=== PATIENT | male | born 1985 | race African-American/Black ===

== ENCOUNTER 2023-04-09 10:35 | Inpatient (IN) | payer MEDICAID, OTHER ==
[~2023-04-09] VITALS: Ht 170.2 cm; Wt 62.3 kg
[2023-04-09] MEDS ORDERED: SODIUM CHLORIDE 0.9% 1,000 ML IVB ONE (10:45)
[2023-04-09 11:01] LABS: Hematocrit 42.8 % (41.0-53.0); Hemoglobin 13.9 g/dL (13.5-17.5); Mean Corpuscular Hemoglobin 29.5 pg (28.0-32.0); Mean Corpuscular Hgb Conc. 32.4 g/dL (32.0-36.0); Mean Corpuscular Volume 91.1 fL (80.0-100.0); Red Cell Distribution Width 13.5 % (11.8-14.3); White Blood Cell 11.8 10^3/uL (4.4-10.8)
[2023-04-09 11:17] LABS: Albumin 3.8 g/dL (3.4-5.0); Anion Gap 10 (5-15); Blood Alcohol < 3.0 mg/dL (<10); Blood Urea Nitrogen 25 mg/dL (7-18); Calcium 8.1 mg/dL (8.5-10.1); Carbon Dioxide 27 mmol/L (21-32); Chloride 102 mmol/L (98-107); Glucose 217 mg/dL (74-106); Potassium 5.1 mmol/L (3.5-5.1); Sodium 139 mmol/L (136-145)
[2023-04-09 11:20] LABS: Alanine Aminotransferase 98 U/L (16-61); Alkaline Phosphatase 115 U/L (45-117); Aspartate Aminotransferase 159 U/L (15-37); BUN/Creatinine Ratio 9.1 (10.0-20.0); Bilirubin, Total 0.3 mg/dL (0.2-1.0); GFR African American 34 mL/min; GFR Non-African American 28 mL/min; Total Protein 6.6 g/dL (6.4-8.2)
[2023-04-09 11:23] LABS: Salicylate < 1.7 mg/dL (2.8-20.0)
[2023-04-09 11:51] LABS: Basophils % (manual) 0 (0.0-2.0); Blast Cells 0; Eosinophils % (manual) 0 (0-7); Metamyelocytes % 0; Myelocytes % 0; Promyelocytes % 0; Reactive Lymphocytes 0
[2023-04-09 11:55] LABS: INR 1.06 (0.9-1.15); Partial Thromboplastin Time 22.4 SEC (24.5-34.5); Prothrombin Time 11.1 sec (9.3-11.8)
[2023-04-09 12:56] LABS: Acetaminophen < 2.0 ug/mL (10-30)
[2023-04-09 12:58] VITALS: PULSE 100; O2SAT 96
[2023-04-09 13:11] LABS: Alcohol, Urine < 3.0 mg/dL (0-10); Amphetamine Screen, Urine POSITIVE (NEGATIVE); Barbiturate Scree,Urine NEGATIVE (NEGATIVE); Benzodiazephine Screen, Urine NEGATIVE (NEGATIVE); Cannabinoid Screen, Urine NEGATIVE (NEGATIVE); Cocaine Screen, Urine NEGATIVE (NEGATIVE)
[2023-04-09 13:12] LABS: Urine Bacteria FEW /hpf (None Seen); Urine Blood 2+ /uL (Negative); Urine Clarity Clear (Clear); Urine Color Yellow (Yellow); Urine Protein, UAD TRACE (Negative); Urine Specific Gravity 1.008 (1.001-1.035); Urine Sperm PRESENT /hpf (None Seen); Urine Urobilinogen Normal (Negative); Urine WBC 2 /hpf (0 - 3); Urine pH 6.5 (5.0-8.0)
[2023-04-09 13:19] LABS: Opiate Scree,Urine NEGATIVE (NEGATIVE); Phencyclidine Screen, Urine NEGATIVE (NEGATIVE)
[2023-04-09 15:21] LABS: Band Neutrophils % (manual) 1; Lymphocytes % (manual) 9 (10.0-50.0); Monocytes % (manual) 6 (0-12)
[2023-04-09 15:22] LABS: Platelet Estimate Adequate
[2023-04-09] MEDS ORDERED: SODIUM CHLORIDE 0.9% 1,000 ML IV ONE (16:45)
[2023-04-09] MEDS ORDERED: ONDANSETRON HCL 4 MG/2 ML VIAL IV PRN (17:30)
[2023-04-09] MEDS ORDERED: DOCUSATE SOD 100 MG CAP PO PRN (17:30)
[2023-04-09] MEDS ORDERED: NALOXONE HCL 1MG/ML 2ML SYRINGE IV PRN (17:30)
[2023-04-09] MEDS: InsuLIN REG 1unit/0.01ml Soln (100units/ml) SC SCH (18:00)
[2023-04-09 18:05] LABS: Base Excess -3.8 mmol/L (-2.0-2.0)
[2023-04-09 18:56] LABS: Creatinine, Urine 52 mg/dL (30.0-125.0); Sodium Urine 90 mmol/L (40-220)
[2023-04-09] MEDS: ACCU-CHEK COMFORT CURVE STRIP VI SCH (19:10)
[2023-04-09] MEDS: SODIUM CHLORIDE 0.9% 1,000 ML IV SCH (19:10)
[2023-04-09] MEDS: PANTOPRAZOLE 40 MG/10 ML VIAL INJ IV SCH (19:11)
[2023-04-09 19:30] VITALS: PULSE 108; RESP 20; O2SAT 93
[2023-04-10] MEDS: ACCU-CHEK COMFORT CURVE STRIP VI SCH ×5 (00:22→21:31)
[2023-04-10] MEDS: SODIUM CHLORIDE 0.9% 1,000 ML IV SCH ×2 (01:59→10:45)
[2023-04-10 05:06] LABS: Hematocrit 44.5 % (41.0-53.0); Hemoglobin 14.6 g/dL (13.5-17.5); Mean Corpuscular Hgb Conc. 32.9 g/dL (32.0-36.0); Mean Corpuscular Volume 91.3 fL (80.0-100.0); Red Blood Cells 4.87 10^6/uL (4.5-5.90); Red Cell Distribution Width 13.7 % (11.8-14.3); White Blood Cell 9.2 10^3/uL (4.4-10.8)
[2023-04-10 05:15] LABS: Basophils % (manual) 0 (0.0-2.0); Blast Cells 0; Eosinophils % (manual) 0 (0-7); Monocytes % (manual) 0 (0-12); Myelocytes % 0; Promyelocytes % 0; Reactive Lymphocytes 0
[2023-04-10] MEDS: InsuLIN REG 1unit/0.01ml Soln (100units/ml) SC SCH ×3 (06:00→13:54)
[2023-04-10 06:23] LABS: Band Neutrophils % (manual) 15; Lymphocytes % (manual) 7 (10.0-50.0); Metamyelocytes % 4
[2023-04-10 06:24] LABS: RBC Morphology Normal
[2023-04-10 06:25] LABS: Platelet Estimate Adequate
[2023-04-10] MEDS: ACETAMINOPHEN 325 MG TAB PO PRN (06:45)
[2023-04-10 06:54] LABS: BUN/Creatinine Ratio 12.6 (10.0-20.0); Bilirubin, Total 0.7 mg/dL (0.2-1.0); Calcium 7.4 mg/dL (8.5-10.1); Potassium 4.2 mmol/L (3.5-5.1)
[2023-04-10 06:55] LABS: Albumin 3.1 g/dL (3.4-5.0); Total Protein 6.2 g/dL (6.4-8.2)
[2023-04-10] MEDS ORDERED: SODIUM CHLORIDE 0.9% 1,000 ML IV ONE (08:30)
[2023-04-10 09:06] VITALS: PULSE 124; RESP 18; O2SAT 92
[2023-04-10] MEDS: PANTOPRAZOLE 40 MG/10 ML VIAL INJ IV SCH (10:45)
[2023-04-10] MEDS ORDERED: hydrALAZINE HCL 20 MG/ML VL IV PRN (13:45)
[2023-04-10] MEDS ORDERED: CARVEDILOL 12.5 MG TAB PO ONE (13:45)
[2023-04-10] MEDS ORDERED: HEPARIN SODIUM (PORCINE) 5000 UNITS/ML 1ML VIAL SC ONE (13:45)
[2023-04-10 14:55] LABS: Cholesterol 105 mg/dL (< 200)
[2023-04-10 14:59] LABS: HDL Cholesterol 70 mg/dL (40-59); LDL Cholesterol 29 mg/dL (< 100); Triglycerides 37 mg/dL (< 150)
[2023-04-10] MEDS: DEXTROSE (50%) 50ML SYRG IV PRN ×3 (16:50→21:32)
[2023-04-10 17:01] LABS: Base Excess -4.6 mmol/L (-2.0-2.0)
[2023-04-10] MEDS ORDERED: D5W/SOD CHL 0.45% 1,000 ML IV ONE (18:30)
[2023-04-10 19:31] LABS: Albumin 2.4 g/dL (3.4-5.0); Calcium 7.3 mg/dL (8.5-10.1)
[2023-04-10 19:34] LABS: BUN/Creatinine Ratio 14.5 (10.0-20.0); Bilirubin, Total 0.8 mg/dL (0.2-1.0); Total Protein 5.2 g/dL (6.4-8.2)
[2023-04-10 19:50] VITALS: PULSE 116; RESP 32; O2SAT 93
[2023-04-10] MEDS ORDERED: HEPARIN SODIUM (PORCINE) 5000 UNITS/ML 1ML VIAL SC SCH (22:00)
[2023-04-10] MEDS ORDERED: CARVEDILOL 12.5 MG TAB PO SCH (22:00)
[2023-04-10] MEDS ORDERED: DEXTROSE 10% 1,000 ML IV ONE (22:45)
[2023-04-11] MEDS: DEXTROSE (50%) 50ML SYRG IV PRN (00:27)
[2023-04-11] MEDS ORDERED: DEXTROSE 10% 1,000 ML IV ONE (01:00)
[2023-04-11] MEDS: ACCU-CHEK COMFORT CURVE STRIP VI SCH ×6 (02:01→22:54)
[2023-04-11 06:38] LABS: Hematocrit 40.9 % (41.0-53.0); Mean Corpuscular Hemoglobin 29.9 pg (28.0-32.0); Mean Corpuscular Hgb Conc. 34.2 g/dL (32.0-36.0); Mean Corpuscular Volume 87.4 fL (80.0-100.0); Red Blood Cells 4.68 10^6/uL (4.5-5.90); Red Cell Distribution Width 13.1 % (11.8-14.3); White Blood Cell 4.4 10^3/uL (4.4-10.8)
[2023-04-11 06:59] LABS: Albumin 2.2 g/dL (3.4-5.0); Calcium 7.4 mg/dL (8.5-10.1); Potassium 4.3 mmol/L (3.5-5.1)
[2023-04-11 07:04] LABS: BUN/Creatinine Ratio 17.7 (10.0-20.0); Bilirubin, Total 0.9 mg/dL (0.2-1.0); Magnesium 2.1 mg/dL (1.6-2.6); Total Protein 4.5 g/dL (6.4-8.2)
[2023-04-11 07:20] VITALS: PULSE 110; RESP 18; O2SAT 95
[2023-04-11 07:34] LABS: Blast Cells 0; Eosinophils % (manual) 0 (0-7); Metamyelocytes % 0; Myelocytes % 0; Promyelocytes % 0; Reactive Lymphocytes 0
[2023-04-11] MEDS: PANTOPRAZOLE 40 MG/10 ML VIAL INJ IV SCH (09:27)
[2023-04-11] MEDS: CARVEDILOL 12.5 MG TAB PO SCH ×2 (09:28→10:28)
[2023-04-11 09:40] LABS: Band Neutrophils % (manual) 16; Basophils % (manual) 1 (0.0-2.0); Lymphocytes % (manual) 8 (10.0-50.0); Monocytes % (manual) 7 (0-12)
[2023-04-11 09:41] LABS: Platelet Estimate Decreased; RBC Morphology Normal
[2023-04-11 09:54] LABS: Hepatitis B Surface Antibody Positive (Negative)
[2023-04-11 10:26] LABS: Hepatitis A Total Antibody Positive (Negative)
[2023-04-11 12:00] LABS: Hepatitis B Core Total AB Negative (Negative)
[2023-04-11 12:01] LABS: Hepatitis B Surface Antigen Negative (Negative)
[2023-04-11 12:02] LABS: Hepatitis C Antibody Negative (Negative)
[2023-04-11] MEDS ORDERED: FUROSEMIDE 40 MG/4 ML VIAL IV ONE (16:15)
[2023-04-11] MEDS ORDERED: FUROSEMIDE 40 MG/4 ML VIAL IV SCH (18:00)
[2023-04-11 20:00] VITALS: PULSE 115; RESP 14; O2SAT 95
[2023-04-11] MEDS: ACETAMINOPHEN 325 MG TAB PO PRN (23:07)
[2023-04-11 23:16] VITALS: BP 136/96; PULSE 103; PULSE 106; RESP 22; TEMP 98.4; O2SAT 96
[2023-04-12] VITALS (8 sets, daily range): BP systolic 100–151; BP diastolic 67–101; PULSE 97–111; RESP 18–21; TEMP 98.8–100.5; O2SAT 90–98
[2023-04-12] MEDS: ACCU-CHEK COMFORT CURVE STRIP VI SCH ×6 (02:29→21:08)
[2023-04-12] MEDS ORDERED: HYDROcodone-ACET 5/325MG TAB PO ONE (05:45)
[2023-04-12 07:09] LABS: Calcium 8.3 mg/dL (8.5-10.1); Potassium 3.8 mmol/L (3.5-5.1)
[2023-04-12 07:12] LABS: BUN/Creatinine Ratio 19.5 (10.0-20.0); Bilirubin, Total 1.2 mg/dL (0.2-1.0); Total Protein 5.8 g/dL (6.4-8.2)
[2023-04-12 08:06] LABS: Thyroid Peroxidase (TPO) Ab <9 IU/mL (0-34)
[2023-04-12] MEDS: PANTOPRAZOLE 40 MG/10 ML VIAL INJ IV SCH (09:44)
[2023-04-12] MEDS: CARVEDILOL 12.5 MG TAB PO SCH ×2 (09:45→21:23)
[2023-04-12] MEDS: ACETAMINOPHEN 325 MG TAB PO PRN ×2 (09:45→21:20)
[2023-04-12] MEDS ORDERED: FUROSEMIDE 40 MG/4 ML VIAL IV SCH (10:00)
[2023-04-12 19:05] LABS: Free T3 1.03 pg/mL (2.3-4.2); T3 Total 0.34 ng/mL (0.60-1.81)
[2023-04-13] VITALS (7 sets, daily range): BP systolic 100–116; BP diastolic 52–71; PULSE 95–109; RESP 19–30; TEMP 97.3–100.9; O2SAT 92–98
[2023-04-13] MEDS: ACCU-CHEK COMFORT CURVE STRIP VI SCH ×4 (00:58→14:00)
[2023-04-13 07:49] LABS: Albumin 1.8 g/dL (3.4-5.0); Calcium 8.4 mg/dL (8.5-10.1); Potassium 3.9 mmol/L (3.5-5.1)
[2023-04-13 08:01] LABS: BUN/Creatinine Ratio 23.8 (10.0-20.0); Bilirubin, Total 1.3 mg/dL (0.2-1.0); Total Protein 5.7 g/dL (6.4-8.2)
[2023-04-13] MEDS: PANTOPRAZOLE 40 MG/10 ML VIAL INJ IV SCH (09:46)
[2023-04-13] MEDS: CARVEDILOL 12.5 MG TAB PO SCH ×2 (09:47→22:13)
[2023-04-13] MEDS ORDERED: FUROSEMIDE 20 MG/2 ML VIAL IV SCH (10:00)
[2023-04-13] MEDS: ACETAMINOPHEN 325 MG TAB PO PRN ×2 (13:10→22:14)
[2023-04-13] MEDS ORDERED: cefTRIAXone 1GM/50ML D5W 50 ML IV ONE (15:30)
[2023-04-14] VITALS (8 sets, daily range): BP systolic 94–112; BP diastolic 53–69; PULSE 95–108; RESP 22–24; TEMP 99–100.2; O2SAT 93–95
[2023-04-14 06:35] LABS: Hematocrit 35.5 % (41.0-53.0); Hemoglobin 11.8 g/dL (13.5-17.5); Mean Corpuscular Hemoglobin 29.3 pg (28.0-32.0); Mean Corpuscular Hgb Conc. 33.4 g/dL (32.0-36.0); Mean Corpuscular Volume 87.9 fL (80.0-100.0); Red Blood Cells 4.03 10^6/uL (4.5-5.90); Red Cell Distribution Width 14.3 % (11.8-14.3); White Blood Cell 12.3 10^3/uL (4.4-10.8)
[2023-04-14 06:56] LABS: Potassium 3.6 mmol/L (3.5-5.1)
[2023-04-14 07:03] LABS: Basophils % (manual) 0 (0.0-2.0); Eosinophils % (manual) 0 (0-7); Metamyelocytes % 0; Myelocytes % 0
[2023-04-14 07:04] LABS: Blast Cells 0; Promyelocytes % 0; Reactive Lymphocytes 0
[2023-04-14 07:07] LABS: Albumin 1.7 g/dL (3.4-5.0); BUN/Creatinine Ratio 32.1 (10.0-20.0); Bilirubin, Total 1.1 mg/dL (0.2-1.0); Calcium 7.9 mg/dL (8.5-10.1); Total Protein 4.6 g/dL (6.4-8.2)
[2023-04-14] MEDS: cefTRIAXone 1GM/50ML D5W 50 ML IV SCH (08:28)
[2023-04-14] MEDS: CARVEDILOL 12.5 MG TAB PO SCH ×2 (09:24→22:59)
[2023-04-14] MEDS: PANTOPRAZOLE 40 MG/10 ML VIAL INJ IV SCH (09:25)
[2023-04-14 11:34] LABS: Free T4 (Free Thyroxine) 0.55 ng/dL (0.89-1.76); T3 Total 0.27 ng/mL (0.60-1.81)
[2023-04-14 12:20] LABS: Band Neutrophils % (manual) 16; Lymphocytes % (manual) 4 (10.0-50.0); Monocytes % (manual) 6 (0-12)
[2023-04-14 12:22] LABS: Platelet Estimate Decreased; Tear Drop Cells FEW
[2023-04-14 14:39] LABS: INR 1.03 (0.9-1.15); Partial Thromboplastin Time 43.5 SEC (24.5-34.5); Prothrombin Time 10.8 sec (9.3-11.8)
[2023-04-15] VITALS (8 sets, daily range): BP systolic 115–138; BP diastolic 72–87; PULSE 81–95; RESP 20–95; TEMP 98.2–99.8; O2SAT 92–97
[2023-04-15 06:50] LABS: Basophils # (auto) 0 10 ^3/uL (0-0.2); Basophils % (auto) 0.2 % (0.0-2.0); Eosinophils # (auto) 0 10 ^3/uL (0-0.8); Eosinophils % (auto) 0.1 % (0.0-7.0); Hematocrit 35.5 % (41.0-53.0); Lymphocytes # (auto) 0.5 10 ^3/uL (0.4-5.4); Lymphocytes % (auto) 3.6 % (10.0-50.0); Mean Corpuscular Hemoglobin 29.5 pg (28.0-32.0); Mean Corpuscular Volume 86.8 fL (80.0-100.0); Monocytes # (auto) 0.3 10 ^3/uL (0-1.3); Monocytes % (auto) 1.7 % (0.0-12.0); Neutrophils # (auto) 13.8 10 ^3/uL (1.6-8.6); Neutrophils % (auto) 94.4 % (37.0-80.0); Nucleated Red Blood Cells % 0.1 %; Red Blood Cells 4.09 10^6/uL (4.5-5.90); White Blood Cell 14.6 10^3/uL (4.4-10.8)
[2023-04-15 07:05] LABS: INR 0.99 (0.9-1.15); Partial Thromboplastin Time 39.6 SEC (24.5-34.5); Prothrombin Time 10.4 sec (9.3-11.8)
[2023-04-15 07:06] LABS: Albumin 1.5 g/dL (3.4-5.0); Calcium 8.4 mg/dL (8.5-10.1); Potassium 3.3 mmol/L (3.5-5.1)
[2023-04-15 07:11] LABS: BUN/Creatinine Ratio 42.3 (10.0-20.0); Bilirubin, Total 0.6 mg/dL (0.2-1.0); Total Protein 5.9 g/dL (6.4-8.2)
[2023-04-15] MEDS ORDERED: POTASSIUM CHL 20 Meq TABLET PO ONE (07:45)
[2023-04-15] MEDS: cefTRIAXone 1GM/50ML D5W 50 ML IV SCH (09:40)
[2023-04-15] MEDS: PANTOPRAZOLE 40 MG/10 ML VIAL INJ IV SCH (09:41)
[2023-04-15] MEDS: CARVEDILOL 12.5 MG TAB PO SCH ×2 (09:42→23:28)
[2023-04-15] MEDS: VALSARTAN 80 MG TAB PO SCH (09:45)
[2023-04-15 11:04] LABS: Urine Bacteria NONE SEEN /hpf (None Seen); Urine Blood TRACE /uL (Negative); Urine Clarity Clear (Clear); Urine Color Yellow (Yellow); Urine Protein, UAD 1+ (Negative); Urine Specific Gravity 1.018 (1.001-1.035); Urine WBC <1 /hpf (0 - 3); Urine pH 6.5 (5.0-8.0)
[2023-04-15 11:16] LABS: Alcohol, Urine < 3.0 mg/dL (0-10); Cannabinoid Screen, Urine NEGATIVE (NEGATIVE)
[2023-04-15 11:18] LABS: Amphetamine Screen, Urine NEGATIVE (NEGATIVE); Barbiturate Scree,Urine NEGATIVE (NEGATIVE); Benzodiazephine Screen, Urine NEGATIVE (NEGATIVE); Cocaine Screen, Urine NEGATIVE (NEGATIVE); Opiate Scree,Urine NEGATIVE (NEGATIVE); Phencyclidine Screen, Urine NEGATIVE (NEGATIVE)
[2023-04-15] MEDS: MAALOX PLUS or MAALOX 30 ML PO PRN (23:28)
[2023-04-16] VITALS (7 sets, daily range): BP systolic 122–144; BP diastolic 78–97; PULSE 87–101; RESP 16–23; TEMP 97.7–99.6; O2SAT 93–98
[2023-04-16 05:53] LABS: Hematocrit 34.6 % (41.0-53.0); Hemoglobin 11.6 g/dL (13.5-17.5); Mean Corpuscular Hemoglobin 29.2 pg (28.0-32.0); Mean Corpuscular Hgb Conc. 33.4 g/dL (32.0-36.0); Mean Corpuscular Volume 87.6 fL (80.0-100.0); Red Blood Cells 3.95 10^6/uL (4.5-5.90); Red Cell Distribution Width 14.1 % (11.8-14.3); White Blood Cell 13.3 10^3/uL (4.4-10.8)
[2023-04-16 06:01] LABS: Basophils % (manual) 0 (0.0-2.0); Blast Cells 0; Eosinophils % (manual) 0 (0-7); Metamyelocytes % 0; Myelocytes % 0; Promyelocytes % 0; Reactive Lymphocytes 0
[2023-04-16 06:12] LABS: Potassium 3.2 mmol/L (3.5-5.1)
[2023-04-16 06:18] LABS: Albumin 1.6 g/dL (3.4-5.0); BUN/Creatinine Ratio 29.6 (10.0-20.0); Bilirubin, Total 0.8 mg/dL (0.2-1.0); Calcium 7.9 mg/dL (8.5-10.1); Total Protein 5.5 g/dL (6.4-8.2)
[2023-04-16 07:58] LABS: Band Neutrophils % (manual) 4; Lymphocytes % (manual) 12 (10.0-50.0); Monocytes % (manual) 3 (0-12)
[2023-04-16 07:59] LABS: Platelet Estimate Adequate
[2023-04-16] MEDS ORDERED: POTASSIUM CHL 20 Meq TABLET PO ONE (08:45)
[2023-04-16] MEDS: cefTRIAXone 1GM/50ML D5W 50 ML IV SCH (08:47)
[2023-04-16] MEDS: PANTOPRAZOLE 40 MG/10 ML VIAL INJ IV SCH (09:16)
[2023-04-16] MEDS: CARVEDILOL 12.5 MG TAB PO SCH ×2 (09:18→22:26)
[2023-04-16] MEDS: VALSARTAN 80 MG TAB PO SCH (09:24)
[2023-04-16] MEDS: Pro-Stat SF 30ml Vanilla PO SCH (18:00)
[2023-04-16] MEDS: MAALOX PLUS or MAALOX 30 ML PO PRN (22:29)
[2023-04-17] VITALS (9 sets, daily range): BP systolic 134–147; BP diastolic 82–97; PULSE 85–103; RESP 18–23; TEMP 98.2–100.8; O2SAT 94–97
[2023-04-17 08:07] LABS: Potassium 4.5 mmol/L (3.5-5.1)
[2023-04-17 08:14] LABS: Albumin 1.7 g/dL (3.4-5.0); BUN/Creatinine Ratio 24.4 (10.0-20.0); Calcium 8.2 mg/dL (8.5-10.1); Total Protein 5.9 g/dL (6.4-8.2)
[2023-04-17] MEDS: Pro-Stat SF 30ml Vanilla PO SCH ×3 (08:28→18:18)
[2023-04-17] MEDS: cefTRIAXone 1GM/50ML D5W 50 ML IV SCH (08:53)
[2023-04-17 09:41] LABS: Hematocrit 37.3 % (41.0-53.0); Hemoglobin 12.4 g/dL (13.5-17.5); Mean Corpuscular Hemoglobin 29.3 pg (28.0-32.0); Mean Corpuscular Hgb Conc. 33.3 g/dL (32.0-36.0); Mean Corpuscular Volume 88.1 fL (80.0-100.0); Red Blood Cells 4.23 10^6/uL (4.5-5.90); Red Cell Distribution Width 13.8 % (11.8-14.3); White Blood Cell 17.5 10^3/uL (4.4-10.8)
[2023-04-17 09:55] LABS: Basophils % (manual) 0 (0.0-2.0); Blast Cells 0; Eosinophils % (manual) 0 (0-7); Metamyelocytes % 0; Myelocytes % 0; Promyelocytes % 0; Reactive Lymphocytes 0
[2023-04-17] MEDS: PANTOPRAZOLE 40 MG/10 ML VIAL INJ IV SCH (10:15)
[2023-04-17] MEDS: CARVEDILOL 12.5 MG TAB PO SCH ×2 (10:16→21:52)
[2023-04-17] MEDS: VALSARTAN 80 MG TAB PO SCH (10:17)
[2023-04-17 11:10] LABS: Band Neutrophils % (manual) 5; Lymphocytes % (manual) 11 (10.0-50.0); Monocytes % (manual) 3 (0-12)
[2023-04-17 11:11] LABS: INR 1.05 (0.9-1.15)
[2023-04-17 11:12] LABS: Platelet Estimate Adequate
[2023-04-17 11:19] LABS: Fibrinogen > 860 mg/dL (177-375)
[2023-04-17] MEDS ORDERED: IBUPROFEN 800 MG TAB PO ONE (21:30)
[2023-04-17] MEDS: IBUPROFEN 800 MG TAB PO ONE ×2 (21:32→21:51)
[2023-04-18] VITALS (8 sets, daily range): BP systolic 120–146; BP diastolic 76–95; PULSE 83–110; RESP 16–24; TEMP 98.2–99.9; O2SAT 95–99
[2023-04-18] MEDS: Pro-Stat SF 30ml Vanilla PO SCH ×3 (08:55→17:59)
[2023-04-18] MEDS: cefTRIAXone 1GM/50ML D5W 50 ML IV SCH (08:56)
[2023-04-18] MEDS: PANTOPRAZOLE 40 MG/10 ML VIAL INJ IV SCH (08:56)
[2023-04-18] MEDS: VALSARTAN 80 MG TAB PO SCH (09:01)
[2023-04-18] MEDS: CARVEDILOL 12.5 MG TAB PO SCH ×2 (09:02→22:03)
[2023-04-18 09:52] LABS: Hematocrit 34.7 % (41.0-53.0); Hemoglobin 11.3 g/dL (13.5-17.5); Mean Corpuscular Hgb Conc. 32.7 g/dL (32.0-36.0); Mean Corpuscular Volume 88.7 fL (80.0-100.0); Red Blood Cells 3.91 10^6/uL (4.5-5.90); Red Cell Distribution Width 13.8 % (11.8-14.3); White Blood Cell 18.2 10^3/uL (4.4-10.8)
[2023-04-18 10:09] LABS: Band Neutrophils % (manual) 0; Basophils % (manual) 0 (0.0-2.0); Blast Cells 0; Eosinophils % (manual) 0 (0-7); Potassium 4.2 mmol/L (3.5-5.1); Promyelocytes % 0; Reactive Lymphocytes 0
[2023-04-18 10:16] LABS: Albumin 1.7 g/dL (3.4-5.0); BUN/Creatinine Ratio 19.2 (10.0-20.0); Bilirubin, Total 0.5 mg/dL (0.2-1.0); Calcium 7.6 mg/dL (8.5-10.1); Total Protein 5.4 g/dL (6.4-8.2)
[2023-04-18 13:36] LABS: Lymphocytes % (manual) 16 (10.0-50.0); Metamyelocytes % 2; Monocytes % (manual) 3 (0-12); Myelocytes % 3; Platelet Estimate Adequate
[2023-04-18] MEDS ORDERED: MELATONIN 5 MG TAB PO PRN (20:45)
[2023-04-18] MEDS: MAALOX PLUS or MAALOX 30 ML PO PRN (23:48)
[2023-04-19 05:00] VITALS: BP 118/71; PULSE 91; RESP 18; TEMP 98.7; O2SAT 95
[2023-04-19 05:53] LABS: Basophils # (auto) 0.1 10 ^3/uL (0-0.2); Basophils % (auto) 0.3 % (0.0-2.0); Eosinophils # (auto) 0.2 10 ^3/uL (0-0.8); Eosinophils % (auto) 0.9 % (0.0-7.0); Hematocrit 31.5 % (41.0-53.0); Hemoglobin 10.5 g/dL (13.5-17.5); Lymphocytes # (auto) 1.6 10 ^3/uL (0.4-5.4); Lymphocytes % (auto) 7.5 % (10.0-50.0); Mean Corpuscular Hemoglobin 29.3 pg (28.0-32.0); Mean Corpuscular Hgb Conc. 33.4 g/dL (32.0-36.0); Mean Corpuscular Volume 87.8 fL (80.0-100.0); Monocytes # (auto) 1.3 10 ^3/uL (0-1.3); Monocytes % (auto) 6.2 % (0.0-12.0); Neutrophils # (auto) 17.6 10 ^3/uL (1.6-8.6); Neutrophils % (auto) 85.1 % (37.0-80.0); Red Blood Cells 3.59 10^6/uL (4.5-5.90); Red Cell Distribution Width 13.6 % (11.8-14.3); White Blood Cell 20.7 10^3/uL (4.4-10.8)
[2023-04-19 06:20] LABS: Potassium 4.5 mmol/L (3.5-5.1)
[2023-04-19 06:24] LABS: Albumin 1.8 g/dL (3.4-5.0); BUN/Creatinine Ratio 20.5 (10.0-20.0)
[2023-04-19 06:26] LABS: Bilirubin, Total 0.8 mg/dL (0.2-1.0); Total Protein 5.6 g/dL (6.4-8.2)
[2023-04-19 08:00] VITALS: PULSE 89
[2023-04-19] MEDS: Pro-Stat SF 30ml Vanilla PO SCH ×2 (08:00→12:00)
[2023-04-19] MEDS: PANTOPRAZOLE 40 MG/10 ML VIAL INJ IV SCH (08:47)
[2023-04-19] MEDS: cefTRIAXone 1GM/50ML D5W 50 ML IV SCH (08:47)
[2023-04-19] MEDS: CARVEDILOL 12.5 MG TAB PO SCH (08:49)
[2023-04-19] MEDS: VALSARTAN 80 MG TAB PO SCH (08:49)
[2023-04-19 09:00] VITALS: BP 130/89; PULSE 80; RESP 17; TEMP 98; O2SAT 93
[2023-04-19 13:00] VITALS: BP 116/69; PULSE 64; RESP 17; TEMP 98.4; O2SAT 95
[2023-04-19] MEDS ORDERED: LOPERAMIDE HCL 2 MG CAP/TAB PO ONE (13:15)
[2023-04-19 14:16] VITALS: BP 116/69; PULSE 64; RESP 17; TEMP 36.9; O2SAT 95
== END 2023-04-19 15:00 | disposition home or self-care (01) | DRG 812 ==
LOC: ER 10:35 → EDBD 10:35 → TELE 17:19 → EDBD 17:19 → OVERFLOW 17:37 → TELE-CENTR 04-11 22:13
PROVIDERS: ADMIT Internal Medicine; ATTEND Student in an Organized Health Care Education/Training Program
DX: T40.601A Poisoning by unspecified narcotics, accidental (unintentional), initial encounter (principal); J96.01 Acute respiratory failure with hypoxia; G92.9 Unspecified toxic encephalopathy; E43 Unspecified severe protein-calorie malnutrition; I21.A1 Myocardial infarction type 2; I50.23 Acute on chronic systolic (congestive) heart failure; E86.0 Dehydration; T40.411A Poisoning by fentanyl or fentanyl analogs, accidental (unintentional), initial encounter; N17.9 Acute kidney failure, unspecified; I11.0 Hypertensive heart disease with heart failure; I27.20 Pulmonary hypertension, unspecified; I42.7 Cardiomyopathy due to drug and external agent; E05.90 Thyrotoxicosis, unspecified without thyrotoxic crisis or storm; E16.2 Hypoglycemia, unspecified; D72.829 Elevated white blood cell count, unspecified; F19.129 Other psychoactive substance abuse with intoxication, unspecified; T43.651A Poisoning by methamphetamines accidental (unintentional), initial encounter; Z59.00 Homelessness unspecified; Y92.89 Other specified places as the place of occurrence of the external cause
CPT/HCPCS: 36415; 36600; 70450; 71045; 74181; 76536; 76700; 78582; 80053; 80061; 80307; 80320; 80329; 81001; 82140; 82533; 82570; 82805; 82962; 82977; 83036; 83605; 83615; 83735; 83880; 83930; 84300; 84436; 84439; 84443; 84445; 84480; 84481; 84484; 85007; 85025; 85027; 85379; 85384; 85610; 85730; 86376; 86704; 86706; 86708; 86803; 87040; 87086; 87340; 93005; 93306; 93970; 96361; 96374; 97110; 97116; 97163; 97530; C9113; G0378; J0696; J2405

== ENCOUNTER 2024-05-01 09:39 | Inpatient (IN) | payer MEDICAID ==
[~2024-05-01] VITALS: Ht 170.2 cm; Wt 63.1 kg
[~2024-05-01 09:39] MED LIST: ASPI-628 PO; CARV3.1240 PO; DOXY100C79 PO; ENAL1TAB43 PO; FURO1TAB33 PO; FURO40TA4 PO; METO25TA5 PO; POLY1POW50 PO
[2024-05-01 11:19] LABS: Urine Bacteria None Seen /hpf (None Seen)
[2024-05-01 11:20] VITALS: PULSE 71; RESP 16; O2SAT 98
[2024-05-01 11:39] LABS: Basophils # (auto) 0.1 10 ^3/uL (0-0.2); Hemoglobin 12.3 g/dL (13.5-17.5); Lymphocytes # (auto) 1.3 10 ^3/uL (0.4-5.4); Monocytes # (auto) 0.6 10 ^3/uL (0-1.3); Nucleated Red Blood Cells % 0.1 %; Platelet Count (auto) 361 10^3/uL (140-450)
[2024-05-01 11:41] LABS: Basophils % (auto) 0.9 % (0.0-2.0); Eosinophils # (auto) 0.2 10 ^3/uL (0-0.8); Eosinophils % (auto) 1.9 % (0.0-7.0); Hematocrit 38.6 % (41.0-53.0); Lymphocytes % (auto) 14.3 % (10.0-50.0); Mean Corpuscular Hemoglobin 25.2 pg (28.0-32.0); Mean Corpuscular Hgb Conc. 31.8 g/dL (32.0-36.0); Mean Corpuscular Volume 79.4 fL (80.0-100.0); Monocytes % (auto) 6.7 % (0.0-12.0); Neutrophils # (auto) 7.1 10 ^3/uL (1.6-8.6); Neutrophils % (auto) 76.2 % (37.0-80.0); Red Blood Cells 4.86 10^6/uL (4.5-5.90); Red Cell Distribution Width 17.1 % (11.8-14.3); White Blood Cell 9.3 10^3/uL (4.4-10.8)
[2024-05-01 11:58] LABS: Urine Blood Negative /uL (Negative); Urine Clarity Clear (Clear); Urine Color Yellow (Yellow); Urine Mucus FEW (None Seen); Urine Protein, UAD 1+ (Negative); Urine Specific Gravity 1.029 (1.001-1.035); Urine Sperm PRESENT /hpf (None Seen); Urine Urobilinogen 3 mg/dL (Negative); Urine WBC <1 /hpf (0 - 3); Urine pH 5.5 (5.0-9.0)
[2024-05-01 11:59] LABS: Lactic Acid w/Reflex 2.6 mmol/L (0.4-2.0)
[2024-05-01 12:03] LABS: Amphetamine Screen, Urine Pos (NEGATIVE)
[2024-05-01 12:04] LABS: Barbiturate Scree,Urine Neg (NEGATIVE); Benzodiazephine Screen, Urine Neg (NEGATIVE); Cannabinoid Screen, Urine Neg (NEGATIVE); Cocaine Screen, Urine Neg (NEGATIVE); Opiate Scree,Urine Neg (NEGATIVE); Phencyclidine Screen, Urine Neg (NEGATIVE)
[2024-05-01 12:05] LABS: Alanine Aminotransferase 78 U/L (7-40); Albumin 3.9 g/dL (3.2-4.8); Alkaline Phosphatase 248 U/L (46-116); Anion Gap 4 (5-15); Aspartate Aminotransferase 70 U/L (13-40); BUN/Creatinine Ratio 18.5 (10.0-20.0); Blood Urea Nitrogen 22 mg/dL (9-23); Carbon Dioxide 27 mmol/L (20-30); Chloride 103 mmol/L (98-107); Glucose 87 mg/dL (74-106); Lipase 32 U/L (12-53); Potassium 4.9 mmol/L (3.5-5.1); Sodium 134 mmol/L (136-145)
[2024-05-01 12:06] LABS: Bilirubin, Total 1.9 mg/dL (0.2-1.0); Total Protein 6.1 g/dL (5.7-8.2)
[2024-05-01] MEDS: ONDANSETRON HCL 4 MG/2 ML VIAL IV ONE (13:54)
[2024-05-01] MEDS: ASPirin 81 mg TAB PO ONE (13:54)
[2024-05-01] MEDS: CARVEDILOL 3.125 MG TAB PO ONE (13:55)
[2024-05-01] MEDS: FUROSEMIDE 100 MG/10ML VIAL IV ONE (13:55)
[2024-05-01 14:02] VITALS: PULSE 71; RESP 19; O2SAT 93
[2024-05-01] MEDS ORDERED: ONDANSETRON HCL 4 MG/2 ML VIAL IV PRN (15:00)
[2024-05-01] MEDS ORDERED: HYDROcodone-ACET 5/325MG TAB PO PRN (15:00)
[2024-05-01] MEDS ORDERED: DOCUSATE SOD 100 MG CAP PO PRN (15:00)
[2024-05-01] MEDS ORDERED: IBUPROFEN 600 MG TAB PO PRN (15:00)
[2024-05-01] MEDS: LORazepam 2MG/ML-1ML VIAL IV ONE (15:09)
[2024-05-01] MEDS ORDERED: NITROGLYCERIN 0.4 MG SL TAB SL PRN (15:30)
[2024-05-01] MEDS ORDERED: MORPHINE SULFATE INJ 2 MG/ml SYRG IV PRN (15:30)
[2024-05-01 16:00] VITALS: PULSE 108; RESP 30; O2SAT 100
[2024-05-01] MEDS: NALOXONE HCL 1MG/ML 2ML SYRINGE ONE (16:04)
[2024-05-01] MEDS: NALOXONE HCL 1MG/ML 2ML SYRINGE IV ONE ×2 (16:15)
[2024-05-01 21:31] LABS: COVID19 ANTIGEN SOFIA FIA NEGATIVE (NEGATIVE)
[2024-05-01] MEDS: SODIUM CHLOR 0.9% PF (SALINE LOCK) 10ML VIAL/SYR IV SCH (22:00)
[2024-05-01] MEDS: SACUBITRIL-VALSARTAN 24mg/26mg TAB PO SCH (22:46)
[2024-05-01] MEDS: CARVEDILOL 3.125 MG TAB PO SCH (22:46)
[2024-05-01 23:43] LABS: Rapid Influenza A Negative (Negative); Rapid Influenza B Negative (Negative)
[2024-05-02 04:54] LABS: Basophils # (auto) 0.1 10 ^3/uL (0-0.2); Eosinophils # (auto) 0.5 10 ^3/uL (0-0.8); Eosinophils % (auto) 4.3 % (0.0-7.0); Hemoglobin 11.8 g/dL (13.5-17.5); Lymphocytes # (auto) 1.1 10 ^3/uL (0.4-5.4); Lymphocytes % (auto) 10.1 % (10.0-50.0); Mean Corpuscular Hemoglobin 26.1 pg (28.0-32.0); Mean Corpuscular Hgb Conc. 32.9 g/dL (32.0-36.0); Mean Corpuscular Volume 79.1 fL (80.0-100.0); Monocytes # (auto) 0.7 10 ^3/uL (0-1.3); Monocytes % (auto) 6.1 % (0.0-12.0); Neutrophils # (auto) 8.6 10 ^3/uL (1.6-8.6); Neutrophils % (auto) 78.5 % (37.0-80.0); Platelet Count (auto) 322 10^3/uL (140-450); Red Blood Cells 4.54 10^6/uL (4.5-5.90); Red Cell Distribution Width 16.9 % (11.8-14.3); White Blood Cell 10.9 10^3/uL (4.4-10.8)
[2024-05-02 05:12] LABS: Alanine Aminotransferase 53 U/L (7-40); Alkaline Phosphatase 228 U/L (46-116); Anion Gap 5 (5-15); Aspartate Aminotransferase 44 U/L (13-40); BUN/Creatinine Ratio 17.9 (10.0-20.0); Bilirubin, Total 1.1 mg/dL (0.2-1.0); Blood Urea Nitrogen 24 mg/dL (9-23); Calcium 8.4 mg/dL (8.7-10.4); Carbon Dioxide 26 mmol/L (20-30); Chloride 104 mmol/L (98-107); Glucose 98 mg/dL (74-106); Potassium 4.4 mmol/L (3.5-5.1); Sodium 135 mmol/L (136-145); Total Protein 5.1 g/dL (5.7-8.2)
[2024-05-02] MEDS ORDERED: SPIRONOLACTONE 25 MG TAB PO SCH (10:00)
[2024-05-02] MEDS ORDERED: ASPirin 81 mg TAB PO SCH (10:00)
[2024-05-02] MEDS: FAMOTIDINE (10MG/ML) 2ML VL IV SCH (10:16)
[2024-05-02] MEDS: FUROSEMIDE 40 MG/4 ML VIAL IV SCH (10:16)
[2024-05-02] MEDS: EMPAGLIFLOZIN 10 MG TAB PO SCH (10:17)
[2024-05-02 10:47] VITALS: PULSE 77; RESP 15; O2SAT 100
[2024-05-02] MEDS: PIPERACILLIN-TAZO 4.5GM 100 ML IV ONE (11:05)
[2024-05-02] MEDS: ENOXAPARIN SOD 40 MG/0.4 ML SYRINGE SC ONE (11:05)
[2024-05-02 12:28] LABS: Folate (Folic Acid) > 24.00 ng/mL (>5.38)
[2024-05-02 13:17] LABS: Base Excess 1.6 mmol/L (-2.0-3.0)
[2024-05-02 19:30] VITALS: RESP 19; O2SAT 94
[2024-05-03 04:47] LABS: Basophils # (auto) 0.1 10 ^3/uL (0-0.2); Hemoglobin 12.2 g/dL (13.5-17.5)
[2024-05-03 04:49] LABS: Eosinophils # (auto) 0.6 10 ^3/uL (0-0.8); Eosinophils % (auto) 5.9 % (0.0-7.0); Hematocrit 37.9 % (41.0-53.0); Lymphocytes % (auto) 9.5 % (10.0-50.0); Mean Corpuscular Hemoglobin 25.8 pg (28.0-32.0); Mean Corpuscular Hgb Conc. 32.3 g/dL (32.0-36.0); Mean Corpuscular Volume 79.9 fL (80.0-100.0); Monocytes # (auto) 0.8 10 ^3/uL (0-1.3); Monocytes % (auto) 7.7 % (0.0-12.0); Neutrophils % (auto) 75.9 % (37.0-80.0); Platelet Count (auto) 336 10^3/uL (140-450); Red Blood Cells 4.75 10^6/uL (4.5-5.90); White Blood Cell 10.5 10^3/uL (4.4-10.8)
[2024-05-03 05:01] LABS: Alanine Aminotransferase 43 U/L (7-40); Alkaline Phosphatase 201 U/L (46-116); Anion Gap 5 (5-15); BUN/Creatinine Ratio 16.6 (10.0-20.0); Blood Urea Nitrogen 24 mg/dL (9-23); Carbon Dioxide 28 mmol/L (20-30); Chloride 103 mmol/L (98-107); Glucose 97 mg/dL (74-106); Magnesium 1.8 mg/dL (1.6-2.6); Potassium 4.2 mmol/L (3.5-5.1); Sodium 136 mmol/L (136-145)
[2024-05-03 05:02] LABS: Albumin 2.9 g/dL (3.2-4.8); Aspartate Aminotransferase 34 U/L (13-40)
[2024-05-03 05:03] LABS: Total Protein 4.8 g/dL (5.7-8.2)
[2024-05-03 05:15] LABS: Bilirubin, Total 0.5 mg/dL (0.2-1.0)
[2024-05-03] MEDS: FUROSEMIDE 20 MG/2 ML VIAL IV ONE (09:22)
[2024-05-03 10:00] VITALS: BP 121/93; PULSE 87; RESP 18; TEMP 97.4; O2SAT 100
[2024-05-03] MEDS: ENOXAPARIN SOD 40 MG/0.4 ML SYRINGE SC SCH (10:00)
[2024-05-03 12:01] VITALS: O2SAT 100
[2024-05-03 12:02] VITALS: BP 121/93; PULSE 87; RESP 18; TEMP 97.4; O2SAT 100
[2024-05-03 16:00] VITALS: BP 150/90; PULSE 86; RESP 16; TEMP 97.8; O2SAT 98
[2024-05-03 20:00] VITALS: PULSE 92; RESP 18; O2SAT 94
[2024-05-03 21:00] VITALS: BP 131/87; PULSE 92; RESP 18; TEMP 99.1; O2SAT 91
[2024-05-03] MEDS ORDERED: FUROSEMIDE 40 MG/4 ML VIAL IV SCH (22:00)
[2024-05-04] VITALS (8 sets, daily range): BP systolic 117–137; BP diastolic 78–98; PULSE 84–99; RESP 17–20; TEMP 98–99; O2SAT 92–100
[2024-05-04 05:50] LABS: Basophils # (auto) 0.1 10 ^3/uL (0-0.2); Basophils % (auto) 1.3 % (0.0-2.0); Eosinophils # (auto) 0.9 10 ^3/uL (0-0.8); Eosinophils % (auto) 10.4 % (0.0-7.0); Hematocrit 38.4 % (41.0-53.0); Hemoglobin 12.6 g/dL (13.5-17.5); Lymphocytes # (auto) 1.2 10 ^3/uL (0.4-5.4); Lymphocytes % (auto) 14.2 % (10.0-50.0); Mean Corpuscular Hemoglobin 25.8 pg (28.0-32.0); Mean Corpuscular Hgb Conc. 32.8 g/dL (32.0-36.0); Mean Corpuscular Volume 78.4 fL (80.0-100.0); Monocytes # (auto) 0.9 10 ^3/uL (0-1.3); Neutrophils # (auto) 5.6 10 ^3/uL (1.6-8.6); Neutrophils % (auto) 64.1 % (37.0-80.0); Platelet Count (auto) 356 10^3/uL (140-450); Red Blood Cells 4.89 10^6/uL (4.5-5.90); Red Cell Distribution Width 16.8 % (11.8-14.3); White Blood Cell 8.8 10^3/uL (4.4-10.8)
[2024-05-04] MEDS: FUROSEMIDE 40 MG/4 ML VIAL IV SCH (05:50)
[2024-05-04 06:10] LABS: Alanine Aminotransferase 38 U/L (7-40); Albumin 3.2 g/dL (3.2-4.8); Alkaline Phosphatase 179 U/L (46-116); Anion Gap 6 (5-15); Aspartate Aminotransferase 32 U/L (13-40); BUN/Creatinine Ratio 22.3 (10.0-20.0); Blood Urea Nitrogen 27 mg/dL (9-23); Calcium 8.3 mg/dL (8.7-10.4); Carbon Dioxide 29 mmol/L (20-30); Chloride 100 mmol/L (98-107); Glucose 93 mg/dL (74-106); Magnesium 1.9 mg/dL (1.6-2.6); Potassium 3.9 mmol/L (3.5-5.1); Sodium 135 mmol/L (136-145)
[2024-05-04 06:11] LABS: Bilirubin, Total 0.4 mg/dL (0.2-1.0); Total Protein 5.3 g/dL (5.7-8.2)
[2024-05-04] MEDS: FAMOTIDINE 20 MG TAB PO SCH (09:02)
[2024-05-05] VITALS (8 sets, daily range): BP systolic 124–139; BP diastolic 87–99; PULSE 83–94; RESP 16–20; TEMP 97.3–98.5; O2SAT 96–99
[2024-05-06] VITALS (8 sets, daily range): BP systolic 102–125; BP diastolic 62–81; PULSE 71–94; RESP 14–20; TEMP 97.5–98.2; O2SAT 96–100
[2024-05-07] VITALS (7 sets, daily range): BP systolic 110–120; BP diastolic 62–79; PULSE 77–97; RESP 14–21; TEMP 97.2–98.6; O2SAT 98–100
[2024-05-08 07:30] VITALS: PULSE 90
[2024-05-08 08:20] VITALS: BP 114/75; PULSE 89; RESP 20; TEMP 97.7; O2SAT 98
[2024-05-08] MEDS: metOLazone 5 MG TAB PO ONE (09:02)
[2024-05-08 09:19] LABS: Basophils # (auto) 0.1 10 ^3/uL (0-0.2); Eosinophils # (auto) 0.6 10 ^3/uL (0-0.8); Lymphocytes # (auto) 1.2 10 ^3/uL (0.4-5.4); Monocytes # (auto) 0.5 10 ^3/uL (0-1.3); Neutrophils # (auto) 5.5 10 ^3/uL (1.6-8.6)
[2024-05-08 09:22] LABS: Basophils % (auto) 1.7 % (0.0-2.0); Eosinophils % (auto) 7.9 % (0.0-7.0); Hematocrit 39.9 % (41.0-53.0); Lymphocytes % (auto) 15.3 % (10.0-50.0); Mean Corpuscular Hemoglobin 25.7 pg (28.0-32.0); Mean Corpuscular Hgb Conc. 32.5 g/dL (32.0-36.0); Monocytes % (auto) 5.9 % (0.0-12.0); Neutrophils % (auto) 69.2 % (37.0-80.0); Platelet Count (auto) 339 10^3/uL (140-450); Red Blood Cells 5.05 10^6/uL (4.5-5.90); Red Cell Distribution Width 17.2 % (11.8-14.3)
[2024-05-08 09:47] LABS: Anion Gap 9 (5-15); Calcium 9.7 mg/dL (8.7-10.4); Carbon Dioxide 23 mmol/L (20-30); Chloride 102 mmol/L (98-107); Potassium 4.2 mmol/L (3.5-5.1); Sodium 134 mmol/L (136-145)
[2024-05-08 09:53] LABS: BUN/Creatinine Ratio 23.9 (10.0-20.0); Blood Urea Nitrogen 28 mg/dL (9-23); Glucose 172 mg/dL (74-106)
[2024-05-08 12:10] VITALS: BP 95/57; PULSE 89; RESP 20; TEMP 98; O2SAT 99
[2024-05-08] MEDS ORDERED: CARV-214 PO (12:41)
[2024-05-08] MEDS ORDERED: FAMO-12 PO (12:41)
[2024-05-08] MEDS ORDERED: SPIR25TA PO (12:41)
[2024-05-08] MEDS ORDERED: ASPI1TAB19 PO (12:41)
[2024-05-08] MEDS ORDERED: SACU1TAB PO (12:41)
[2024-05-08] MEDS ORDERED: FURO1TAB31 PO (12:41)
[2024-05-08 13:04] VITALS: BP 113/75; PULSE 90
== END 2024-05-08 16:25 | disposition home or self-care (01) | DRG 812 ==
LOC: ER 09:39 → TELE 15:26 → TELE-EAST 05-03 11:36
PROVIDERS: ADMIT Internal Medicine; ATTEND Internal Medicine
DX: T43.651A Poisoning by methamphetamines accidental (unintentional), initial encounter (principal); J96.01 Acute respiratory failure with hypoxia; G92.8 Other toxic encephalopathy; I50.23 Acute on chronic systolic (congestive) heart failure; E87.20 Acidosis, unspecified; I27.20 Pulmonary hypertension, unspecified; F10.10 Alcohol abuse, uncomplicated; D50.9 Iron deficiency anemia, unspecified; T51.91XA Toxic effect of unspecified alcohol, accidental (unintentional), initial encounter; I11.0 Hypertensive heart disease with heart failure; I42.7 Cardiomyopathy due to drug and external agent; N17.9 Acute kidney failure, unspecified; Z20.822 Contact with and (suspected) exposure to COVID-19; K40.90 Unilateral inguinal hernia, without obstruction or gangrene, not specified as recurrent; I16.1 Hypertensive emergency; F15.10 Other stimulant abuse, uncomplicated; F17.210 Nicotine dependence, cigarettes, uncomplicated; R74.8 Abnormal levels of other serum enzymes; R74.01 Elevation of levels of liver transaminase levels; Z91.199 Patient's noncompliance with other medical treatment and regimen due to unspecified reason; Z82.49 Family history of ischemic heart disease and other diseases of the circulatory system
CPT/HCPCS: 36415; 36600; 70450; 71045; 71046; 74176; 76705; 80048; 80053; 80307; 80320; 81001; 82607; 82746; 82805; 82962; 83605; 83690; 83735; 83880; 84443; 84484; 85025; 85379; 86703; 86803; 87040; 87070; 87086; 87205; 87340; 87426; 87804; 93005; 93970; 96374; 96375; 97110; 97116; 97163; 97530; 99291; G0378; J2405; J2543; J3490